=== PATIENT | male | born 1955 | race Caucasian/White ===

== ENCOUNTER 2024-05-20 10:26 | Emergency (ER) | payer MEDICARE ==
[~2024-05-20 10:26] MED LIST: ALPARAZOLAM0.5 MG PO; AMLODIPINE BESYL5 MG PO; CEPHALEXIN500 M1 PO; CYCLOBENZAPRINE10 M1 PO; EZETIMIBE10 M1 PO; HCTZ 25MG25 MG PO; HYDROXYZINE HCL25 M1 PO; PAXIL30 M2 PO; PEPCID 20MG TAB20 MG PO; POTASSIUM CHLO20 ME3 PO; PRAVASTATIN SOD40 MG PO; PROTONIX TR40 M1 PO; ZESTRIL10 M1 PO; ZOCOR 10MG10 MG PO; ZYRTEC10 MG PO
[2024-05-20 10:57] LABS: BASO # 0.03 K/mm3 (0.02-0.10); HEMATOCRIT 23.1 % (42.0-52.0); LYMPH# 0.73 K/mm3 (1.50-4.00); MEAN CELL VOLUME 88 fl (78-100); MEAN CORPUSCULAR HEMOGLOBIN 27 pg (27-31); MEAN CORPUSCULAR HGB CONC 30 g/dL (33-37); MEAN PLATELET VOLUME 9.2 fl (7.4-10.4); NEU # 12.95 K/mm3 (1.40-6.50); PLATELET COUNT 269 K/mm3 (130-400); RED BLOOD COUNT 2.64 M/mm3 (4.20-5.60); RED CELL DISTRIBUTION WIDTH 21.8 % (11.5-14.5)
[2024-05-20] MEDS ORDERED: XARELTO20 MG PO (11:00)
[2024-05-20 11:09] LABS: ALBUMIN 3.7 g/dL (3.4-4.8)
[2024-05-20 11:11] LABS: CALCIUM 9.8 mg/dL (8.3-10.5)
[2024-05-20] MEDS ORDERED: FEROSUL325 M1 PO (11:11)
[2024-05-20 11:12] LABS: TOTAL PROTEIN 6.5 g/dL (6.2-8.1)
[2024-05-20 11:14] LABS: TOTAL BILIRUBIN 0.3 mg/dL (0.2-1.2)
[2024-05-20] MEDS ORDERED: WELLBUTRIN SR150 M2 PO (11:20)
[2024-05-20 11:37] LABS: TROPONIN-I 0.118 ng/mL (0.00-0.033)
[2024-05-20] MEDS ORDERED: NS 1,000 ML IV SCH ×3 (11:45→18:00)
[2024-05-20] MEDS ORDERED: Pantoprazole 40 MG in NS 10 ML IV ONE (12:00)
[2024-05-20] MEDS ORDERED: ALPRAZolam 0.5 MG TAB PO ONE (13:45)
[2024-05-20 16:36] LABS: HEMATOCRIT 19.8 % (42.0-52.0)
[2024-05-20 16:38] LABS: HEMOGLOBIN 6.1 g/dL (13.5-18.0)
[2024-05-20 18:47] VITALS: BP 133/91
== END 2024-05-20 18:57 | disposition short-term general hospital (02) ==
LOC: ED 10:26
PROVIDERS: Family Medicine
DX: D64.9 Anemia, unspecified (principal); F41.9 Anxiety disorder, unspecified; C61 Malignant neoplasm of prostate; I95.1 Orthostatic hypotension; R79.89 Other specified abnormal findings of blood chemistry
CPT/HCPCS: J2470; J7030

== ENCOUNTER 2024-05-25 10:13 | Emergency (ER) | payer MEDICARE ==
[~2024-05-25] VITALS: Ht 188 cm; Wt 106.8 kg
[~2024-05-25 10:13] MED LIST changes: +FEROSUL325 M1 PO; +WELLBUTRIN SR150 M2 PO; +XARELTO20 MG PO
[2024-05-25] MEDS ORDERED: NS 1,000 ML IV SCH (10:45)
[2024-05-25 11:04] LABS: HEMATOCRIT 28.4 % (42.0-52.0); HEMOGLOBIN 9.1 g/dL (13.5-18.0); MEAN CELL VOLUME 84 fl (78-100); MEAN CORPUSCULAR HEMOGLOBIN 27 pg (27-31); MEAN CORPUSCULAR HGB CONC 32 g/dL (33-37); MEAN PLATELET VOLUME 10.1 fl (7.4-10.4); PLATELET COUNT 141 K/mm3 (130-400); RED BLOOD COUNT 3.38 M/mm3 (4.20-5.60); RED CELL DISTRIBUTION WIDTH 18.1 % (11.5-14.5); WHITE BLOOD COUNT 3.8 K/mm3 (4.8-10.8)
[2024-05-25 11:09] LABS: CALCIUM 10.1 mg/dL (8.3-10.5)
[2024-05-25 11:33] LABS: BAND 1 % (0-10); LYMPHOCYTE 10 % (20-51); MONOCYTE 12 % (3-10); NEUTROPHILS 75 % (42-75)
[2024-05-25 11:35] LABS: HYPOCHROMIA 2+; MICROCYTOSIS 1+
[2024-05-25 12:44] LABS: URINE APPEARANCE CLOUDY (CLEAR); URINE BILIRUBIN 1+ (NEGATIVE); URINE COLOR YELLOW (YELLOW); URINE GLUCOSE NEGATIVE (NEGATIVE); URINE KETONE 3+ (NEGATIVE); URINE PROTEIN(semi-quant) 1+ (NEGATIVE)
[2024-05-25 12:45] LABS: URINE BLOOD TRACE-INTACT (NEGATIVE); URINE LEUKOCYTE ESTERASE NEGATIVE (NEGATIVE); URINE NITRATE NEGATIVE (NEGATIVE); URINE WBC 0-1 /hpf (0-3)
[2024-05-25 12:46] LABS: URINE MUCUS PRESENT (NOT PRESENT)
--- NOTE | 2024-05-25 13:24 | NUR ---
spoke with Darian. He lives in independent living here in [place]. Daughter Karen is listed on contacts. Darian has been out of his paxil for some time now. On BIMS scoring Darian was able to remeber 2 out of three words over 30 min. Watch [employer]. He remembered [employer], [place]. He says that his has a history of daily drinking. He says that he has general anxiety disorder. Upon talking to his daughter Karen she says that he had manic depression in the past. Darian does not cook for himself. Resources given: [facility]. [facility] transportation scheduling and information. He states that after his last radiation therapy he bought a small pint of rum and some coke. This was May 08. Prior to that drink his last was in September 2023. He had drank beer in the past. He says this month is April, He is aware of the week day as and that he had an appointment with his pcp today. Karen is happy helping him with his medical needs if needed. She lives in [place] so does his son Tevin Rojo. Phone number for Tevin is [phone]. [employer] paperwork is signed to include Katt and her brother Tevin. Signed and witnessed. Secure email sent to Katt Aleks at [email or web address]
[2024-05-25 13:27] VITALS: BP 155/91
== END 2024-05-25 13:30 | disposition home or self-care (01) ==
LOC: ED 10:13
PROVIDERS: Nurse Practitioner
DX: I95.1 Orthostatic hypotension (principal); D64.9 Anemia, unspecified; F41.9 Anxiety disorder, unspecified
CPT/HCPCS: J7030